=== PATIENT | female | born 1950 | race Caucasian/White ===

== ENCOUNTER 2019-06-06 07:02 | Day surgery (SDC) | payer MEDICARE, OTHER ==
[2019-06-06] MEDS ORDERED: PROPOFOL INJ 200 MG/20 ML VIAL IV ONE (07:50)
[2019-06-06 09:20] VITALS: BP 137/79
--- NOTE | 2019-06-06 13:11 | Operative Report ---
Operative Report DATE OF SURGERY: 06/06/19 Operative Report: The risks benefits and alternatives of the procedure explained to the patient in detail and informed consent is obtained.A GIF Olympus video scope was inserted into the patient's mouth and hypopharynx, the esophagus is identified intubated and insufflated, the scope was then advanced through the esophagus stomach and duodenum, retroflexion maneuver is done ,the esophagus stomach and first and second portions of the duodenum examined PREOPERATIVE DIAGNOSIS: Gastroesophageal reflux disease POSTOPERATIVE DIAGNOSIS: Gastric erosions status post biopsy OPERATION: EGD with biopsy SURGEON: TAVIA MARTINEZ ANESTHESIA: LMAC TISSUE REMOVED OR ALTERED: As noted above. COMPLICATIONS: None. ESTIMATED BLOOD LOSS: None. INTRAOPERATIVE FINDINGS: As noted above. PROCEDURE: Patient tolerated the procedure well. No immediate postprocedure complications are noted. Patient is discharged in good condition. Discharge date 06/06/2019. Discharge diet: Regular. Discharge activity: Regular. 2 to 3-week follow-up to discuss findings. Patient is instructed to call the office or proceed to the emergency room should there be any further problems or questions. Wait on the pathology.
== END 2019-06-06 08:58 | disposition home or self-care (01) ==
LOC: END 07:02
PROVIDERS: ATTEND Internal Medicine Gastroenterology
DX: K21.9 Gastro-esophageal reflux disease without esophagitis (principal); K31.9 Disease of stomach and duodenum, unspecified
CPT/HCPCS: 43239; 88342 ×2; 88305 ×2; 00731; J2704; 731